=== PATIENT | male | born 1990 | race American Indian/Alaskan Native ===

== ENCOUNTER 2020-10-03 08:02 | Emergency (ER) | payer SELFPAY ==
[2020-10-03 08:13] VITALS: BP 143/79
--- NOTE | 2020-10-03 09:15 | XRay Report ---
XR shoulder 2+V LT INDICATION / CLINICAL INFORMATION: pain. COMPARISON: None available. FINDINGS: No acute fracture. Normal alignment. Joint spaces are preserved. No destructive osseous lesion or s uspicious periosteal reaction. Impression: 1.No significant osseous abnormality. Signer Name: Shlomo Burgos MD Signed: 10/03/2020 9:11 AM Workstation Name: [id number]
--- NOTE | 2020-10-03 13:01 | Emergency Department Report ---
ED General Adult HPI - General Chief complaint: Extremity Injury, Upper Stated complaint: LT SHOULDER PAIN Source: patient Mode of arrival: Ambulatory Limitations: No Limitations - History of Present Illness Initial comments: 30-year-old -[place] male patient presents with complaints of sudden onset of left shoulder pain starting yesterday after stretching. He denies any direct trauma to his shoulder, numbness/tingling/weakness in his arm, or swelling. He rates his pain at 7/10 in severity and states it did improve with [place] balm. Pain worsens with movement per patient - Related Data Previous Rx's Medication Instructions Recorded Last Taken Type Diclofenac Sodium 75 mg PO BID PRN #14 tablet. 10/03/20 Unknown Rx methOCARBAMOL [Robaxin TAB] 1,500 mg PO Q8H PRN #20 tablet 10/03/20 Unknown Rx Allergies Allergy/AdvReac Type Severity Reaction Status Date / Time No Known Allergies Allergy Unverified 10/03/20 08:13 ED Review of Systems ROS: Stated complaint: LT SHOULDER PAIN Other details as noted in HPI Constitutional: denies: fever Respiratory: denies: shortness of breath Cardiovascular: denies: chest pain Musculoskeletal: arthralgia. denies: joint swelling Neurological: denies: numbness, paresthesias ED Past Medical Hx - Past Medical History Previous Medical History?: No - Surgical History Past Surgical History?: No - Social History Smoking Status: Never Smoker Substance Use Type: Marijuana - Medications Home Medications: Home Medications Medication Instructions Recorded Confirmed Last Taken Type Diclofenac Sodium 75 mg PO BID PRN #14 tablet. 10/03/20 Unknown Rx methOCARBAMOL [Robaxin TAB] 1,500 mg PO Q8H PRN #20 tablet 10/03/20 Unknown Rx ED Physical Exam - General Limitations: No Limitations General appearance: alert, in no apparent distress - Head Head exam: Present: atraumatic, normocephalic - Eye Eye exam: Present: normal appearance - Respiratory Respiratory exam: Absent: respiratory distress - Cardiovascular Cardiovascular Exam: Present: regular rate - Extremities Exam Extremities exam: Present: full ROM, other (Tenderness to palpation noted to the distal AC joint of the left shoulder without obvious deformity 35-year-old -[place] female patient presents with complaints of left vaginal pain and swelling x today. 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 She reports that she has seen a) - Neurological Exam Neurological exam: Present: alert, oriented X3, normal gait - Psychiatric Psychiatric exam: Present: normal affect, normal mood - Skin Skin exam: Present: warm, dry, intact, normal color. Absent: rash ED Course Vital Signs 10/03/20 08:09 Temperature 97.9 F Pulse Rate 85 Respiratory 18 Rate Blood Pressure 143/79 O2 Sat by Pulse 97 Oximetry ED Medical Decision Making - Radiology Data Radiology results: report reviewed XR shoulder 2+V LT INDICATION / CLINICAL INFORMATION: pain. COMPARISON: None available. FINDINGS: No acute fracture. Normal alignment. Joint spaces are preserved. No destructive osseous lesion or suspicious periosteal reaction. Impression: 1.No significant osseous abnormality. - Medical Decision Making 30-year-old -[place] male patient presents with complaints of sudden onset of left shoulder pain starting yesterday after stretching. He denies any direct trauma to his shoulder, numbness/tingling/weakness in his arm, or swelling. He rates his pain at 7/10 in severity and states it did improve with [place] balm. Pain worsens with movement per patient X-rays negative for any acute bony abnormalities. Patient does have full range of motion of the left shoulder on exam. Will treat for shoulder strain with NSAIDs and Robaxin. Recommend follow-up with PCP as needed. Patient placed in arm sling and discussed importance of icing and rest. Strict return precautions were discussed in detail with patient who verbalizes understanding. Critical care attestation.: If time is entered above; I have spent that time in minutes in the direct care of this critically ill patient, excluding procedure time. ED Disposition Clinical Impression: Sprain of left shoulder Qualifiers: Encounter type: initial encounter Shoulder sprain type: coracohumeral ligament Qualified Code(s): S43.412A - Sprain of left coracohumeral (ligament), initial encounter Disposition: TO HOME OR SELFCARE Is pt being admited?: No Condition: Stable Instructions: Shoulder Sprain Prescriptions: Diclofenac Sodium 75 mg PO BID PRN #14 tablet.dr TARANGO Reason: pain methOCARBAMOL [Robaxin TAB] 1,500 mg PO Q8H PRN #20 tablet PRN Reason: muscle spasm/tightness Referrals: PRIMARY CARE, [Primary Care Provider] - 3-5 Days Forms: Work/School Release Form(ED)
== END 2020-10-03 13:59 | disposition home or self-care (01) ==
LOC: ED 08:02
DX: S43.412A Sprain of left coracohumeral (ligament), initial encounter (principal); F12.10 Cannabis abuse, uncomplicated; Z79.899 Other long term (current) drug therapy; X58.XXXA Exposure to other specified factors, initial encounter; Y93.89 Activity, other specified; Y92.89 Other specified places as the place of occurrence of the external cause; Y99.8 Other external cause status
CPT/HCPCS: 99283